=== PATIENT | female | born 2000 | race Hispanic/Latino ===

== ENCOUNTER 2024-05-08 17:45 | Emergency (ER) | payer SELFPAY ==
[2024-05-08 18:46] LABS: BHCG - Serum Negative (NEGATIVE); Pregs Control Background? CLEAR/WHITE (CLR/WHITE); Pregs Control Bar Appear? YES (CONTROL BAR)
[2024-05-08] MEDS ORDERED: Ketorolac Tromethamine 30 MG (1 mL) VIAL ONE (18:49)
[2024-05-08] MEDS ORDERED: Cyclobenzaprine 10 MG TAB ONE (18:49)
== END 2024-05-08 21:02 | disposition home or self-care (01) ==
LOC: ERS 17:45
DX: S39.012A Strain of muscle, fascia and tendon of lower back, initial encounter (principal); S20.219A Contusion of unspecified front wall of thorax, initial encounter; V43.52XA Car driver injured in collision with other type car in traffic accident, initial encounter; Y93.89 Activity, other specified
CPT/HCPCS: 72100; 84703; 96372; 99283; J1885